=== PATIENT | female | born 1965 | race Two or more races ===

== ENCOUNTER 2021-10-29 09:00 | Outpatient (CLI) | payer OTHER | END 2021-10-29 09:15 | disposition home or self-care (01) | LOC: PPH VACUNA 09:00 | PROVIDERS: ATTEND Emergency Medicine Pediatric Emergency Medicine | DX: Z23 Encounter for immunization (principal) ==

== ENCOUNTER 2022-03-17 09:48 | Outpatient (CLI) | payer OTHER | END 2022-03-17 09:49 | disposition home or self-care (01) | LOC: TOM 09:48 | PROVIDERS: ATTEND Physical Medicine & Rehabilitation | DX: M48.02 Spinal stenosis, cervical region (principal); M99.41 Connective tissue stenosis of neural canal of cervical region; M47.12 Other spondylosis with myelopathy, cervical region ==

== ENCOUNTER 2022-10-02 16:35 | Emergency (ER) | payer OTHER ==
[~2022-10-02] VITALS: Ht 170.2 cm; Wt 99.8 kg
[2022-10-02] MEDS ORDERED: SERTRALINE20 MG/1 ML (17:04)
[2022-10-02] MEDS ORDERED: CARBIDOPA-LEVO1 EAC9 (17:04)
[2022-10-02] MEDS ORDERED: TRAZODONE HCL150 MG (17:04)
[2022-10-02] MEDS ORDERED: ATIVAN0.5 M1 (17:04)
[2022-10-02] MEDS ORDERED: AMRIX15 MG (17:04)
== END 2022-10-02 19:00 | disposition home or self-care (01) ==
LOC: ER 16:35
DX: G20 Parkinson's disease (principal)